=== PATIENT | female | born 1995 | race Caucasian/White ===

== ENCOUNTER 2020-12-18 07:41 | Inpatient (IN) ==
--- NOTE | 2020-11-20 10:22 | Anesthesiology Consultation ---
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 No known Covid positive contacts or Covid related symptoms. No known Covid infection in the past 90 days. Preop Covid testing scheduled 12/14/20= will await results. History Surgery Operation Date: 12/18/20 08:50 Proposed Procedures p Section in LD - J. Brock Dick MD, FACOG Height/Weight Height: 5 ft 7.5 in Weight: 86.183 kg Allergies Allergy/AdvReac Type Severity Reaction Status Date / Time No Known Drug Allergies Allergy Verified 11/20/20 09:50 Medications Home Medications Medication Instructions Recorded Confirmed Last Taken PNV cmb#95-ferrous fumarate-FA 1 tab PO PM 11/20/20 11/20/20 Unknown [] aspirin [Aspir-81] 81 mg PO PM 11/20/20 11/20/20 Unknown cholecalciferol (vitamin D3) 50 mcg PO PM 11/20/20 11/20/20 Unknown [Vitamin D3] clonazepam [Klonopin] 0.25 mg PO DAILY PRN 11/20/20 11/20/20 Unknown docosahexaenoic acid [DHA ] 200 mg PO PM 11/20/20 11/20/20 Unknown ferrous sulfate 325 mg PO PM 11/20/20 11/20/20 Unknown folic acid 5 mg PO PM 11/20/20 11/20/20 Unknown Past Medical History Medical History Anxiety Heartburn during History of anesthesia reaction during tonsillectomy > aspirated> had bilat pneumonia History of hysterosalpingogram Normal @ [facility] [place] Migraine PVC (premature ventricular contraction) PCP aware, no follow up at this time per pt Twin Urinary frequency Past Family History Family History Mother Breast cancer Grandmother (Maternal) Breast cancer Father Heart disease Denies family history of Ovarian cancer Colorectal cancer Uterine cancer Past Surgical History Surgical History H/O melanoma excision R leg H/O tooth extraction History of tonsillectomy Social History Smoking Status: Never smoker Do You Dip or Chew Tobacco: No Hx Alcohol Use: No Hx Substance Use: No substance use type: does not use Testing Laboratory Results 11/18/20= UA: Negative
[2020-12-18] MEDS ORDERED: OXYTOCIN 30 UNITS/500 ML BAG IV PRN ×2 (08:44→08:46)
[2020-12-18] MEDS ORDERED: LACTATED RINGER'S 1,000 ML IV PRN (08:44)
--- NOTE | 2020-12-18 08:44 | History & Physical Report ---
Date of Service December 18, 2020 Assessment & Plan (1) Dichorionic diamniotic twin : She is now 4 cm Pitocin will be started first baby is vertex we discussed epidural and recommended this we discussed using a scalp clip as well to help monitor the baby's once membranes were ruptured. I discussed again the higher rate of section with twin induction and also the possibility of vaginal delivery of the first and then of the second we discussed typical outcomes with twins and complications with them patient wishes to proceed with induction Admission and Anticipated Discharge Date Admission Date: December 18, 2020 History of Present Illness Primary Care Provider: 38+ weeks gestation dichorionic diamnionic twin gestation she is here for induction her has been followed carefully with twins and the fetuses are concordant baby A is in vertex position and baby B is slightly transverse to head down. Group B strep negative Covid negative her medical history includes melanoma of her leg Allergies Allergy/AdvReac Type Severity Reaction Status Date / Time No Known Drug Allergies Allergy none Verified 12/17/20 21:52 Home Medications Medication Instructions Recorded Confirmed Type PNV cmb#95-ferrous fumarate-FA 1 tab PO PM 11/20/20 12/18/20 History [] aspirin [Aspir-81] 81 mg PO PM 11/20/20 12/18/20 History cholecalciferol (vitamin D3) 50 mcg PO PM 11/20/20 12/18/20 History [Vitamin D3] docosahexaenoic acid [DHA ] 200 mg PO PM 11/20/20 12/18/20 History ferrous sulfate 325 mg PO PM 11/20/20 12/18/20 History folic acid 5 mg PO PM 11/20/20 12/18/20 History Patient History Medical History Anxiety Heartburn during History of anesthesia reaction during tonsillectomy > aspirated> had bilat pneumonia History of hysterosalpingogram Normal @ [facility] [place] 2019 Migraine PVC (premature ventricular contraction) PCP aware, no follow up at this time per pt Twin Urinary frequency Surgical History H/O melanoma excision R leg H/O tooth extraction History of tonsillectomy Family History Mother Breast cancer Grandmother (Maternal) Breast cancer Father Heart disease Denies family history of Ovarian cancer Colorectal cancer Uterine cancer Social History Smoking Status: Never smoker Second Hand Exposure: No; Do You Dip or Chew Tobacco: No; Tobacco Cessation Education Requested by Patient: No Hx Alcohol Use: No Hx Substance Use: No Preferred Language: [place] Islander Communication Ability: Effective 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 Beliefs That Will Affect Care: None marital status: marital status details: Ashutosh Lew (27) [phone] Current Living Situation: Spouse Current Living Situation Comment: lives with spouse, dog current occupational status: employed current occupation: [employer] Other Information That Helps Us Care for You: No Feels Safe at Home: Yes Safety Concerns: Feels Safe At This Time Assistive Devices: None and Glasses Results & Data ([facility]) Vital Signs (Past 12 Hours) Vital Signs Temp Pulse BP 12/18/20 07:56 96 H 133/84 12/18/20 07:53 98.1 F Coding Level of Care Code None Diagnoses Dichorionic diamniotic twin O30.049
[2020-12-18] MEDS ORDERED: PENICILLIN G POTASSIUM 3 MU in DEXTROSE 5% 100 ML IV PRN (08:51)
--- NOTE | 2020-12-18 08:52 | Obstetrical Progress Note ---
Date of Service December 18, 2020 Assessment & Plan Admission and Anticipated Discharge Date Admission Date: December 18, 2020 Subjective correction, GBS POS, will start PCN Results & Data ([facility]) Vital Signs (Past 12 Hours) Vital Signs Temp Pulse BP 12/18/20 07:56 96 H 133/84 12/18/20 07:53 98.1 F PG Care Time/CCT Total # of Minutes Spent Total Time Spent with Patient: Total time spent is greater than 50% in coordination of care (as documented) at patient's floor/unit and/or counseling patient: Coding Level of Care Code None
[2020-12-18] MEDS ORDERED: PENICILLIN G POTASSIUM 6 MU in DEXTROSE 5% 250 ML IV STA (08:54)
[2020-12-18 09:33] LABS: Hematocrit (blood only) 34.1 % (37-47); Hemoglobin 11.8 g/dL (12.0-16.0); Mean Corpuscular Hemoglobin 30.9 pg (25-34); Mean Corpuscular Hgb Conc 34.6 g/dL (32-36); Mean Corpuscular Volume 89.3 fL (80-100); Mean Platelet Volume 9.5 fL (7.4-10.4); Platelet Count 78 K/uL (130-400); RDW Coefficient of Variation 14.3 % (11.5-14.5); RDW Standard Deviation 46.7 fL (36.4-46.3); Red Blood Count 3.82 M/uL (4.2-5.4); White Blood Count 10.24 K/uL (4.8-10.8)
[2020-12-18 09:34] LABS: Platelet Estimate Decreased (Normal)
[2020-12-18 10:04] LABS: Hematocrit (blood only) 34.3 % (37-47); Hemoglobin 11.7 g/dL (12.0-16.0); Mean Corpuscular Hemoglobin 30.6 pg (25-34); Mean Corpuscular Hgb Conc 34.1 g/dL (32-36); Mean Corpuscular Volume 89.8 fL (80-100); RDW Coefficient of Variation 14.1 % (11.5-14.5); RDW Standard Deviation 46.7 fL (36.4-46.3); Red Blood Count 3.82 M/uL (4.2-5.4); White Blood Count 10.48 K/uL (4.8-10.8)
[2020-12-18 10:06] LABS: Mean Platelet Volume 9.3 fL (7.4-10.4); Platelet Count 68 K/uL (130-400)
[2020-12-18 10:21] LABS: Alanine Aminotransferase 196 U/L (12-78); Albumin Level 2.5 gm/dl (3.4-5.0); Aspartate Aminotransferase 173 U/L (15-37); BUN Creatinine Ratio 15.3 (10-20); Blood Urea Nitrogen 8 mg/dl (7-18); Calcium 8.8 mg/dl (8.5-10.1); Carbon Dioxide 23 mmol/L (21-32); Chloride 106 mmol/L (98-107); Creatinine Clr Calc Pharmacy 197.8 ml/min; Est GFR (African American) > 150.0; Est GFR (Non-African American) 132.6; Glucose 83 mg/dl (70-99); Potassium 3.6 mmol/L (3.5-5.1); Sodium 136 mmol/L (136-145)
[2020-12-18 10:24] LABS: Albumin Globulin Ratio 0.7 (0.9-2); Alkaline Phosphatase 161 U/L (45-117); Bilirubin,Total 0.9 mg/dl (0.2-1); Globulin 3.7 gm/dl (2.5-4.0); Total Protein 6.2 gm/dl (6.4-8.2)
[2020-12-18] MEDS ORDERED: SODIUM CHLORIDE 0.9% 250 ML IV PRN ×3 (10:37→11:15)
[2020-12-18 10:42] LABS: Basophils # (auto) 0.02 K/uL (0-0.2); Basophils % (auto) 0.2 %; Eosinophils # (auto) 0.06 K/uL (0-0.5); Eosinophils % (auto) 0.6 %; Immature Granulocytes # (auto) 0.09 K/uL (0.00-0.02); Immature Granulocytes % (auto) 0.9 %; Lymphocytes % (auto) 12.4 %; Monocytes # (auto) 0.98 K/uL (0.11-0.59); Monocytes % (auto) 9.4 %; Neutrophils # (auto) 8.03 K/uL (1.4-6.5); Neutrophils % (auto) 76.5 %; RBC Morphology Unremarkable
--- NOTE | 2020-12-18 11:08 | Obstetrical Progress Note ---
Date of Service Update her platelet count was low on initial draw and a repeat it was 68 patient feels well although she did have some upper abdominal pain couple days ago and noted that when she was shaving her legs that she bled for longer than typical. Her liver enzymes are also elevated AST ALT she now has a platelet count that is not safe for regional anesthetic. Discussed that she needs magnesium sulfate and reviewed with anesthesia we recommend section under general anesthetic we will start magnesium first and we have discussed with blood bank for the possible use of platelets and other blood products. This was discussed with the patient as well the plan including the reasons for including risks of and increased bleeding risks Patient does have hellp syndrome section. The patient was counseled to the nature of the procedure including alternatives such as labor. Risks were discussed including bleeding infection injury to bowel bladder ureter vessels and even baby. Deep Vein thrombosis, pulmonary embolus discussed. Breakdown of incision reviewed. Deep vein thrombosis pulmonary embolus hernia and failure of the incision to heal were discussed Patient verbalized understanding of this and was given ample time to ask questions. Discussed that the main issue is that I do not feel an reduction as #1 she cannot have a regional anesthetic and #2 is if we had to do an emergency I think this would be even more dangerous in a low platelets and situation that is a controlled in the situation is my recommendation December 18, 2020 Assessment & Plan Admission and Anticipated Discharge Date Admission Date: December 18, 2020 Results & Data ([facility]) Vital Signs (Past 12 Hours) Vital Signs Temp Pulse Resp BP 12/18/20 10:00 18 12/18/20 09:30 20 12/18/20 08:30 20 12/18/20 08:15 98.1 F 20 12/18/20 07:56 96 H 133/84 12/18/20 07:53 98.1 F PG Care Time/CCT Total # of Minutes Spent Total Time Spent with Patient: Total time spent is greater than 50% in co ordination of care (as documented) at patient's floor/unit and/or counseling patient: Coding Level of Care Code None
[2020-12-18] MEDS ORDERED: MAG SULFATE 4GM BOLUS FROM BAG IV ONE (11:15)
[2020-12-18 11:30] LABS: INR 0.9 (0.9-1.1); Partial Thromboplastin Ratio 1.1; Partial Thromboplastin Time 28.7 Seconds (21.0-31.0); Prothrombin Time 9.4 Seconds (9.0-12.0)
[2020-12-18] MEDS: MAGNESIUM SULFATE / WTR 40 GM/1,000 ML BAG IV SCH (11:36)
[2020-12-18 11:42] LABS: Protein Creatinine Ratio Urine 0.4 (0-0.2); Total Protein Urine Random 60.2 mg/dl (0-11.9)
[2020-12-18] MEDS ORDERED: SUCCINYLCHOLINE 100MG/5ML SYR IV ONE (11:42)
[2020-12-18] MEDS ORDERED: fentaNYL citrate 100 MCG/2 ML VIAL ONE (11:42)
[2020-12-18] MEDS ORDERED: ONDANSETRON INJ 2 MG/ML 2 ML VIAL ONE ×2 (11:42→12:37)
[2020-12-18] MEDS ORDERED: PROPOFOL IV EMULSION 10 MG/ML 20 ML VIAL IV ONE (11:42)
[2020-12-18] MEDS ORDERED: SUCCINYLCHOLINE CHLORIDE 20 MG/ML 10 ML VIAL IV ONE (11:43)
[2020-12-18] MEDS ORDERED: ceFAZolin 2000MG 2,000 MG/15 ML SYR IV STA (11:51)
[2020-12-18] MEDS ORDERED: miSOPROStoL 200 MCG TAB ONE (12:22)
[2020-12-18] MEDS ORDERED: OXYTOCIN 10 UNITS/ML VIAL ONE ×4 (12:36→12:54)
[2020-12-18] MEDS ORDERED: MoRPHine SULFATE 2 MG/ML CARP ONE ×2 (12:43→12:50)
[2020-12-18] MEDS ORDERED: MoRPHine SULFATE PF 1 MG/ML 10 ML AMP/VIAL ONE (12:59)
[2020-12-18] MEDS ORDERED: LIDOCAINE HCL 2% (LOCAL) INJ 50 ML VIAL ONE (13:04)
[2020-12-18 13:08] LABS: Base Excess Cord Arterial Bld 1.6 mEq/L (-9-1.8); Base Excess Cord Venous Blood 0.5 mEq/L (-7.7-1.9); CO2 Cord Arterial Blood 56 mmHg (39.1-73.5); Cord Venous Blood HCO3 27 mmol/L (18.4-26.8); Cord Venous Blood PCO2 48 mmHg (30.4-57.2); Cord Venous Blood PO2 36 mmHg (14.1-43.3); Cord Venous Blood pH 7.36 (7.20-7.44); HCO3 Cord Arterial Blood 29 mmol/L (19.7-28.5); O2 Saturation Cord Venous Bld 73.6 % (<68); PO2 Cord Arterial Blood 22 mmHg (4.1-31.7); pH Cord Arterial Blood 7.33 (7.1-7.38)
[2020-12-18 13:10] LABS: Oxygen Sat Cord Arterial Blood < 60.0 % (<60)
[2020-12-18 13:14] LABS: Base Excess Cord Arterial Bld 1.2 mEq/L (-9-1.8); CO2 Cord Arterial Blood 55 mmHg (39.1-73.5); HCO3 Cord Arterial Blood 28 mmol/L (19.7-28.5); PO2 Cord Arterial Blood 23 mmHg (4.1-31.7); pH Cord Arterial Blood 7.33 (7.1-7.38)
[2020-12-18 13:15] LABS: Oxygen Sat Cord Arterial Blood < 60.0 % (<60)
[2020-12-18] MEDS ORDERED: ONDANSETRON INJ 2 MG/ML 2 ML VIAL IV PRN ×2 (13:20→15:12)
[2020-12-18] MEDS ORDERED: ATROPINE SULFATE 0.1 MG/ML 10ML SYR IV PRN (13:20)
[2020-12-18] MEDS ORDERED: ePHEDrine sulfate 50 MG/ML AMP IV PRN (13:20)
[2020-12-18] MEDS ORDERED: PROMETHAZINE HCL 6.25 MG in SODIUM CHLORIDE 0.9% 50 ML IV PRN (13:20)
--- NOTE | 2020-12-18 13:24 | Operative Report ---
PG Post Operative Report Pre & Post Diagnosis Operation Date: 12/18/20 08:50 <No data on this case meets the specified criteria> Operation Date: 12/18/20 12:15 Pre-Op Diagnosis: Twins; HELLP Syndrome;38 Weeks Gestation Post-Op Diagnosis: Same; Delivery of a live male child at 1234; Delivery of a live female child at 1236 ( main OR 3) I identified the patient and participated in the time-out.: Yes Procedure Operation Date: 12/18/20 08:50 <No data on this case meets the specified criteria> Operation Date: 12/18/20 12:15 Actual Procedures p Section in LD(Bilateral) - Kaye Dick MD, FACOG Surgeon Kaye Dick MD, FACOG Health Analyst Dr. Ryan Estimated Blood Loss 700 Findings Consistent with Post-Op Diagnosis Specimens cord gases and blodd, placenta Description of Procedure Patient received preoperative antibiotics Ancef 2 g she had received IV platelets as well as her count was low by anesthesia she received a general anesthetic and once this was completed Pfannenstiel incision was made with scalpel cutting down through subtenons fat through the fascia in the midline curved Mayos were used to cut the fascia laterally and then fascia was dissected superiorly and inferiorly away from the rectus muscles rectus muscles were split peritoneal cavity was entered bluntly bladder retractor was placed Metzenbaums used to dissect the bladder flap away low segment transverse incision was been made on the uterus with scalpel entry was done bluntly with the acid recovery operator's finger and then hysterotomy incision opened to allow delivery of the first baby First baby was in vertex position after flexion of the head and then pressure from the physiotherapy assistant baby was delivered without difficulty clear fluid no nuchal cord cord clamped and cut note curved clamps were used on baby A Cord gases obtained cord blood obtained Baby B was then palpated in vertex position descended into the pelvis membranes were ruptured and was also delivered in vertex position by flexion of the head and physiotherapy assistant from pressure from the physiotherapy assistant Live vigorous infant cord clamped and cut cord gases obtained Placenta was removed 2 separate placentas were removed. We exteriorized the uterus IV Pitocin was started we ensured all placenta was removed from the uter us was a moist lap. Uterus was closed in usual fashion a running 0 Monocryl locked and a second 0 Monocryl nonlocked at this stage after patient uterus back in the peritoneal cavity and after generous irrigation and suction hemostasis was excellent we did apply FloSeal to the incision and bladder flap area Rectus muscles were carefully inspected there were no bleeders fascia was then closed with 0 Vicryl Subtenons fat was irrigated and injected with local anesthetic fat was then closed with 3-0 Vicryl skin closed with 4 oh subicular Monocryl sponge and instrument counts correct Urine was clear at the end of the procedure and there was only moderate bleeding at the end of the procedure consistent with normal delivery of a I attest to the content of the Intraoperative Record and any orders documented therein. Any exceptions are noted below. Procedure Pre-op/Post-op diagnoses: Pre-Op/Post-Op Diagnoses Operation Date: 12/18/20 08:50 <No data on this case meets the specified criteria> Operation Date: 12/18/20 12:15 Pre-Op Diagnosis: Twins; HELLP Syndrome;38 Weeks Gestation Post-Op Diagnosis: Same; Delivery of a live male child at 1234; Delivery of a live female child at 1236 ( main OR 3) Procedure: Procedures Operation Date: 12/18/20 08:50 <No data on this case meets the specified criteria> Operation Date: 12/18/20 12:15 Actual Procedures Side Surgeon p Section in LD Bilateral Kaye Dick MD, FACOG Anesthesia type: General Narrative: Note this is a twin delivery
[2020-12-18 13:41] LABS: Base Excess Cord Venous Blood 0.1 mEq/L (-7.7-1.9); Cord Venous Blood HCO3 26 mmol/L (18.4-26.8); Cord Venous Blood PCO2 48 mmHg (30.4-57.2); Cord Venous Blood PO2 36 mmHg (14.1-43.3); Cord Venous Blood pH 7.35 (7.20-7.44); O2 Saturation Cord Venous Bld 75.8 % (<68)
[2020-12-18] MEDS: fentaNYL citrate 100 MCG/2 ML VIAL IV PRN ×3 (13:45→14:50)
[2020-12-18] MEDS ORDERED: NALOXONE HCL 0.4 MG/1 ML VIAL/CARP IV PRN (13:50)
[2020-12-18] MEDS ORDERED: HYDROmorphone PCA 30 MG/30 ML IV PRN (13:50)
[2020-12-18] MEDS ORDERED: SODIUM CHLORIDE 0.9% 1000ML 1,000 ML IV SCH (14:00)
[2020-12-18] MEDS: ACETAMINOPHEN 1000 MG/100 ML IV IV SCH ×2 (14:09→22:00)
[2020-12-18] MEDS ORDERED: MAGNESIUM HYDROXIDE SUSP 30 ML UDC PO PRN (15:12)
[2020-12-18] MEDS ORDERED: HYDROCORTISONE ACETATE 25 MG SUPP PR PRN (15:12)
[2020-12-18] MEDS ORDERED: SENNA 8.6 MG TAB PO PRN (15:12)
[2020-12-18] MEDS ORDERED: oxyCODONE/ACETAMINOPHEN 5mg/325mg TAB PO PRN (15:12)
[2020-12-18] MEDS ORDERED: diphenhydrAMINE Capsule 25 MG CAP PO PRN (15:12)
[2020-12-18] MEDS ORDERED: BENZOCAINE 20% AER SPR 82.5 GM CAN EXT PRN (15:12)
[2020-12-18] MEDS ORDERED: SUPERCREAM 0.870% 15 GM JAR EXT PRN (15:12)
[2020-12-18] MEDS ORDERED: diphenhydrAMINE 50 MG/ML VIAL IV PRN (15:12)
[2020-12-18] MEDS ORDERED: PROMETHAZINE HCL 25 MG in SODIUM CHLORIDE 0.9% 50 ML IV PRN (15:12)
[2020-12-18] MEDS: OXYTOCIN 20 UNITS in LACTATED RINGER'S 1,000 ML IV SCH (16:00)
[2020-12-18 16:24] LABS: Hematocrit (blood only) 25.5 % (37-47); Hemoglobin 8.8 g/dL (12.0-16.0); Mean Corpuscular Hemoglobin 31.2 pg (25-34); Mean Corpuscular Hgb Conc 34.5 g/dL (32-36); Mean Corpuscular Volume 90.4 fL (80-100); Mean Platelet Volume 9.6 fL (7.4-10.4); Platelet Count 91 K/uL (130-400); RDW Coefficient of Variation 14.3 % (11.5-14.5); RDW Standard Deviation 47.4 fL (36.4-46.3); Red Blood Count 2.82 M/uL (4.2-5.4); White Blood Count 19.33 K/uL (4.8-10.8)
[2020-12-18 16:32] LABS: Alanine Aminotransferase 141 U/L (12-78); Albumin Level 1.9 gm/dl (3.4-5.0); Aspartate Aminotransferase 127 U/L (15-37); BUN Creatinine Ratio 17.1 (10-20); Basophils # (auto) 0.02 K/uL (0-0.2); Basophils % (auto) 0.1 %; Blood Urea Nitrogen 7 mg/dl (7-18); Calcium 7.8 mg/dl (8.5-10.1); Carbon Dioxide 21 mmol/L (21-32); Chloride 107 mmol/L (98-107); Creatinine Clr Calc Pharmacy 235.5 ml/min; Eosinophils # (auto) 0.01 K/uL (0-0.5); Eosinophils % (auto) 0.1 %; Est GFR (African American) > 150.0; Est GFR (Non-African American) 140.5; Glucose 92 mg/dl (70-99); Immature Granulocytes # (auto) 0.13 K/uL (0.00-0.02); Immature Granulocytes % (auto) 0.7 %; Lymphocytes % (auto) 7.2 %; Monocytes # (auto) 1.29 K/uL (0.11-0.59); Monocytes % (auto) 6.7 %; Neutrophils # (auto) 16.48 K/uL (1.4-6.5); Neutrophils % (auto) 85.2 %; Sodium 137 mmol/L (136-145)
[2020-12-18 16:36] LABS: Albumin Globulin Ratio 0.7 (0.9-2); Alkaline Phosphatase 121 U/L (45-117); Bilirubin,Total 1.3 mg/dl (0.2-1); Globulin 2.9 gm/dl (2.5-4.0); Total Protein 4.8 gm/dl (6.4-8.2)
--- NOTE | 2020-12-18 17:04 | Anesthesiology Progress Note ---
Date of Service December 18, 2020 Anesthesia Post Procedure Vital Signs Vital Signs: Temp Pulse Resp BP Pulse Ox 12/18/20 17:03 76 97 12/18/20 17:00 75 99/54 L 12/18/20 16:58 72 95 12/18/20 16:53 77 95 12/18/20 16:48 71 94 12/18/20 16:43 76 95 12/18/20 16:38 73 94 12/18/20 16:33 73 96 12/18/20 16:28 84 95 12/18/20 16:23 93 H 96 12/18/20 16:18 89 96 12/18/20 16:13 85 95 12/18/20 16:08 85 96 12/18/20 16:03 83 96 12/18/20 15:58 79 97 12/18/20 15:53 82 12/18/20 15:49 84 106/64 12/18/20 15:48 86 97 12/18/20 15:43 83 96 12/18/20 15:39 36.7 C 83 14 108/57 L 12/18/20 15:38 79 97 12/18/20 15:33 72 98 12/18/20 15:29 84 111/61 12/18/20 15:28 77 97 12/18/20 15:23 72 95 12/18/20 15:19 75 111/66 12/18/20 15:18 75 96 12/18/20 15:13 74 96 12/18/20 15:09 74 14 123/60 12/18/20 15:08 70 97 12/18/20 15:03 69 94 12/18/20 14:59 73 124/57 L 12/18/20 14:58 71 93 12/18/20 14:54 73 92 12/18/20 14:53 70 96 12/18/20 14:49 73 120/63 12/18/20 14:48 75 97 12/18/20 14:43 73 95 12/18/20 14:39 36.7 C 75 12 121/63 12/18/20 14:38 78 97 12/18/20 14:33 73 96 12/18/20 14:31 75 94 12/18/20 14:29 75 14 128/63 12/18/20 14:28 76 95 12/18/20 14:23 82 96 12/18/20 14:21 81 94 12/18/20 14:19 80 16 128/63 12/18/20 14:18 80 97 12/18/20 14:13 75 98 12/18/20 14:09 81 14 127/66 12/18/20 14:08 75 97 12/18/20 14:03 77 98 12/18/20 13:59 74 14 125/65 12/18/20 13:58 77 99 12/18/20 13:53 81 100 12/18/20 13:49 36.5 C 80 16 117/61 12/18/20 13:48 76 99 12/18/20 13:43 77 100 12/18/20 13:39 82 133/63 12/18/20 13:38 76 100 12/18/20 12:08 108 H 97 12/18/20 12:03 102 H 96 12/18/20 12:02 100 H 135/80 12/18/20 12:00 36.5 C 20 12/18/20 11:58 104 H 97 12/18/20 11:53 102 H 97 12/18/20 11:48 96 H 97 12/18/20 11:47 97 H 138/81 12/18/20 11:46 36.5 C 97 H 18 138/81 97 12/18/20 11:14 88 138/86 12/18/20 11:00 20 12/18/20 10:00 18 12/18/20 09:30 20 12/18/20 08:30 20 12/18/20 08:15 36.7 C 20 12/18/20 07:56 96 H 133/84 12/18/20 07:53 36.7 C Pain Intensity Bilateral Lower Abdomen: Pain Intensity: 4 Transfer of Care Handoff Completed per policy Notes Mental Status: alert / awake / arousable Patient Amnestic to Procedure: Yes Nausea / Vomiting: adequately controlled Pain: adequately controlled Airway Patency, RR, SpO2: stable & adequate BP & HR: stable & adequate Hydration State: stable & adequate Anesthetic Complications: no major complications apparent
[2020-12-18] MEDS ORDERED: Nursing to Pharmacy Communication SCH (17:15)
[2020-12-18] MEDS: SIMETHICONE 80 MG CHEW PO SCH ×2 (18:09→21:30)
[2020-12-18] MEDS ORDERED: LACTATED RINGER'S 1,000 ML IV ONE (21:19)
--- NOTE | 2020-12-18 21:26 | Obstetrical Progress Note ---
Date of Service Patient doing well at this stage I did review earlier labs with improvement in both platelets and her AST ALT will continue the magnesium sulfate at this time patient's urine output is just at the minimum I will give a IV bolus of fluid because she is not hypertensive I think this is reasonable usually I would fluid restrict at this stage we will assess labs in the morning December 18, 2020 Assessment & Plan Admission and Anticipated Discharge Date Admission Date: December 18, 2020 Results & Data ([facility]) Vital Signs (Past 12 Hours) Vital Signs Temp Pulse Resp BP Pulse Ox 12/18/20 21:23 84 97 12/18/20 21:20 76 92 12/18/20 21:18 79 93 12/18/20 21:14 77 92 12/18/20 21:13 79 92 12/18/20 21:08 80 97 12/18/20 21:04 81 91 12/18/20 21:03 78 93 12/18/20 21:00 75 100/56 L 12/18/20 20:58 80 93 12/18/20 20:57 78 92 12/18/20 20:53 78 94 12/18/20 20:52 79 92 12/18/20 20:48 75 93 12/18/20 20:47 82 92 12/18/20 20:43 78 94 12/18/20 20:38 81 95 12/18/20 20:33 79 95 12/18/20 20:28 81 96 12/18/20 20:23 83 96 12/18/20 20:18 79 96 12/18/20 20:13 88 96 12/18/20 20:08 90 95 12/18/20 20:03 79 97 12/18/20 20:00 81 110/57 L 12/18/20 19:58 88 95 12/18/20 19:53 85 95 12/18/20 19:48 86 96 12/18/20 19:46 90 111/56 L 12/18/20 19:43 89 95 12/18/20 19:38 87 96 12/18/20 19:33 98 H 95 12/18/20 19:28 93 H 96 12/18/20 19:23 90 96 12/18/20 19:18 89 95 12/18/20 19:15 97.9 F 18 12/18/20 19:13 98 H 95 12/18/20 19:08 92 H 95 12/18/20 19:03 87 95 12/18/20 19:00 90 92 12/18/20 18:58 86 95 12/18/20 18:53 89 94 12/18/20 18:48 90 96 12/18/20 18:43 79 94 12/18/20 18:38 79 97 12/18/20 18:33 78 97 12/18/20 18:28 77 96 12/18/20 18:23 82 97 12/18/20 18:18 80 98 12/18/20 18:13 78 97 12/18/20 18:08 79 97 12/18/20 18:03 77 97 12/18/20 18:00 78 16 110/62 12/18/20 17:58 80 96 12/18/20 17:53 75 96 12/18/20 17:48 82 96 12/18/20 17:43 91 H 97 12/18/20 17:40 16 12/18/20 17:38 79 96 12/18/20 17:33 79 97 12/18/20 17:28 88 96 12/18/20 17:23 79 96 12/18/20 17:18 77 95 12/18/20 17:13 76 96 12/18/20 17:08 72 95 12/18/20 17:03 76 97 12/18/20 17:00 75 14 99/54 L 12/18/20 16:58 72 95 12/18/20 16:53 77 95 12/18/20 16:48 71 94 12/18/20 16:43 76 95 12/18/20 16:38 73 94 12/18/20 16:33 73 96 12/18/20 16:28 84 95 12/18/20 16:23 93 H 96 12/18/20 16:18 89 96 12/18/20 16:13 85 95 12/18/20 16:08 85 96 12/18/20 16:03 83 96 12/18/20 15:58 79 97 12/18/20 15:53 82 12/18/20 15:49 84 106/64 12/18/20 15:48 86 97 12/18/20 15:43 83 96 12/18/20 15:39 98.1 F 83 14 108/57 L 12/18/20 15:38 79 97 12/18/20 15:33 72 98 12/18/20 15:29 84 111/61 12/18/20 15:28 77 97 12/18/20 15:23 72 95 12/18/20 15:19 75 111/66 12/18/20 15:18 75 96 12/18/20 15:13 74 96 12/18/20 15:09 74 14 123/60 12/18/20 15:08 70 97 12/18/20 15:03 69 94 12/18/20 14:59 73 124/57 L 12/18/20 14:58 71 93 12/18/20 14:54 73 92 12/18/20 14:53 70 96 12/18/20 14:49 73 120/63 12/18/20 14:48 75 97 12/18/20 14:43 73 95 12/18/20 14:39 98.1 F 75 12 121/63 12/18/20 14:38 78 97 12/18/20 14:33 73 96 12/18/20 14:31 75 94 12/18/20 14:29 75 14 128/63 12/18/20 14:28 76 95 12/18/20 14:23 82 96 12/18/20 14:21 81 94 12/18/20 14:19 80 16 128/63 12/18/20 14:18 80 97 12/18/20 14:13 75 98 12/18/20 14:09 81 14 127/66 12/18/20 14:08 75 97 12/18/20 14:03 77 98 12/18/20 14:00 14 12/18/20 13:59 74 14 125/65 12/18/20 13:58 77 99 12/18/20 13:53 81 100 12/18/20 13:49 97.7 F 80 16 117/61 12/18/20 13:48 76 99 12/18/20 13:43 77 100 12/18/20 13:39 82 133/63 12/18/20 13:38 76 100 12/18/20 12:08 108 H 97 12/18/20 12:03 102 H 96 12/18/20 12:02 100 H 135/80 12/18/20 12:00 97.7 F 20 12/18/20 11:58 104 H 97 04/09/21 11:53 102 H 97 12/18/20 11:48 96 H 97 12/18/20 11:47 97 H 138/81 12/18/20 11:46 97.7 F 97 H 18 138/81 97 12/18/20 11:14 88 138/86 12/18/20 11:00 20 12/18/20 10:00 18 12/18/20 09:30 20 PG Care Time/CCT Total # of Minutes Spent Total Time Spent with Patient: Total time spent is greater than 50% in coordination of care (as documented) at patient's floor/unit and/or counseling patient: Coding Level of Care Code None
[2020-12-18] MEDS: DOCUSATE SODIUM 100 MG CAP PO SCH (21:30)
[2020-12-19] MEDS ORDERED: ACETAMINOPHEN 1000 MG/100 ML IV IV PRN (04:35)
[2020-12-19] MEDS: MAGNESIUM SULFATE / WTR 40 GM/1,000 ML BAG IV SCH (05:36)
[2020-12-19] MEDS: OXYTOCIN 20 UNITS in LACTATED RINGER'S 1,000 ML IV SCH (06:18)
--- NOTE | 2020-12-19 06:21 | Obstetrical Progress Note ---
Date of Service <Michael Infante MD - Last Filed: 12/19/20 07:10> December 19, 2020 Assessment & Plan <Michael Infante MD - Last Filed: 12/19/20 07:10> (1) Dichorionic diamniotic twin : Alma is a 25 y/o female who is POD #1 following PLTCS in setting of atypical HELLP syndrome at 38 WGA, with subsequent delivery of two healthy di/di twins. s/p PLTCS - Overall, doing well this AM -- VS and labs reviewed, stable - Pain well controlled with FIELD BROOMER - Routine post-operative care -- trial Hanna removal today, OOB, ambulation, diet progression as tolerated - CBC qAM - After discharge will have [address] Dick HELLP Syndrome, Atypical -- s/p 1U FFP pre-operatively - Appreciated on labs yesterday, platelets to ~60s, mild transaminitis from 140- 190s - Continue Mg throughout today - BPs stable - Continue to monitor CMP Acute Blood Loss Anemia -- currently asymptomatic - Hgb ~11 on arrival --> 7.1 this AM, Hct 30 - While bleeding seems to have stabilized externally, concerned that this may drop further in immediate post-operative setting - Discussed options, watchful waiting vs. transfusion -- transfusion being recommended - Will proceed with 2U pRBC, type/cross already completed - H&H at 1400 (2) HELLP syndrome (HELLP), third trimester: Subjective <Michael Infante MD - Last Filed: 12/19/20 07:10> Alma is a 25 y/o female who is POD #1 following PLTCS in setting of atypical HELLP syndrome at 38 WGA. Her and delivery were also notable for di/di twins. She reports feeling well overall this morning. Endorses moderate pain this AM, well managed on FIELD BROOMER. Voiding via Hanna, which is draining yellow urine. Tolerating fluids OK. Very mild bleeding which has improved over the night. Breast feeding. Does note +mild abdominal pain, RUQ area. No lightheadedness, dizziness - ho wever, has not really gotten up to walk around. Mild fatigue. Review of Systems Denies fever, chills, sweats Denies shortness of breath, difficulty breathing, chest pain, palpitations, chest pressure. Denies breast pain. Denies dysuria. Denies headache or changes in vision. Physical Exam <Michael Infante MD - Last Filed: 12/19/20 07:10> General: Alert, oriented. Pale appearing. No acute distress. Cardiac: Regular rate and rhythm, no murmurs/rubs/gallops. Respiratory: Clear to auscultation bilaterally a/p, no wheezes/rales/rhonchi. No increased work of breathing. Symmetrical chest rise. No respiratory distress. Abdomen: Soft and nondistended. Mild TTP in the RUQ. Uterus: Uterine fundus firm, palpable 1-2 cm below umbilicus. Surgical scar clean and healing well. Lower Extremities: Mild lower extremity edema or swelling. No deep calf pain. Obdulia's negative bilaterally. Results & Data ([facility]) <Michael Infante MD - Last Filed: 12/19/20 07:10> Vital Signs (Past 12 Hours) Vital Signs Temp Pulse Resp BP Pulse Ox 12/19/20 06:13 96 H 94 12/19/20 06:08 99 H 92 12/19/20 06:03 88 93 12/19/20 06:00 99 H 106/53 L 12/19/20 05:58 98 H 93 12/19/20 05:53 86 93 12/19/20 05:48 89 94 12/19/20 05:43 91 H 94 12/19/20 05:38 92 H 93 12/19/20 05:33 95 H 93 12/19/20 05:28 88 94 12/19/20 05:23 92 H 94 12/19/20 05:18 81 92 12/19/20 05:13 79 91 12/19/20 05:08 77 91 12/19/20 05:03 89 94 12/19/20 05:00 73 111/57 L 12/19/20 04:58 78 92 12/19/20 04:53 77 92 12/19/20 04:48 78 92 12/19/20 04:43 77 92 12/19/20 04:38 77 93 12/19/20 04:33 76 94 12/19/20 04:28 80 94 12/19/20 04:23 79 92 12/19/20 04:18 78 93 12/19/20 04:13 77 92 12/19/20 04:08 74 93 12/19/20 04:03 80 92 12/19/20 04:00 77 108/55 L 12/19/20 03:58 76 93 12/19/20 03:53 77 92 12/19/20 03:48 90 95 12/19/20 03:45 36.8 C 16 12/19/20 03:43 75 93 12/19/20 03:38 78 92 12/19/20 03:33 80 92 12/19/20 03:28 79 92 12/19/20 03:23 79 93 12/19/20 03:18 82 91 12/19/20 03:13 82 93 12/19/20 03:08 80 92 12/19/20 03:03 79 92 12/19/20 03:00 77 112/58 L 12/19/20 02:58 78 93 12/19/20 02:53 75 94 12/19/20 02:48 83 95 12/19/20 02:43 84 95 12/19/20 02:38 89 94 12/19/20 02:33 93 H 96 12/19/20 02:28 82 94 12/19/20 02:23 97 H 95 12/19/20 02:18 92 H 96 12/19/20 02:13 86 93 12/19/20 02:10 16 12/19/20 02:08 95 H 94 12/19/20 02:03 94 H 95 12/19/20 02:00 89 130/60 12/19/20 01:58 95 H 93 12/19/20 01:53 96 H 95 12/19/20 01:48 78 93 12/19/20 01:43 77 93 12/19/20 01:38 82 92 12/19/20 01:33 78 92 12/19/20 01:28 78 93 12/19/20 01:23 78 92 12/19/20 01:18 79 92 12/19/20 01:13 79 92 12/19/20 01:08 78 93 12/19/20 01:03 80 92 12/19/20 01:00 80 110/61 12/19/20 00:58 77 94 12/19/20 00:54 83 92 12/19/20 00:53 83 92 12/19/20 00:49 81 91 12/19/20 00:48 77 95 12/19/20 00:43 79 91 12/19/20 00:41 79 91 12/19/20 00:38 81 93 12/19/20 00:36 83 88 L 12/19/20 00:33 75 93 12/19/20 00:30 88 92 12/19/20 00:28 78 92 12/19/20 00:25 79 92 12/19/20 00:23 78 94 12/19/20 00:18 88 95 12/19/20 00:13 93 H 95 12/19/20 00:08 97 H 95 12/19/20 00:06 82 123/66 12/19/20 00:03 95 H 95 12/19/20 00:00 36.8 C 18 12/18/20 23:58 98 H 94 12/18/20 23:53 98 H 94 12/18/20 23:48 91 H 94 12/18/20 23:43 93 H 93 12/18/20 23:38 96 H 94 12/18/20 23:33 92 H 94 12/18/20 23:32 101 H 92 12/18/20 23:28 87 94 12/18/20 23:23 89 95 12/18/20 23:18 86 94 12/18/20 23:13 85 95 12/18/20 23:08 87 93 12/18/20 23:03 84 93 12/18/20 23:00 84 108/55 L 12/18/20 22:58 90 93 12/18/20 22:53 86 95 12/18/20 22:48 91 H 96 12/18/20 22:43 88 95 12/18/20 22:38 91 H 95 12/18/20 22:33 94 H 94 12/18/20 22:28 92 H 95 12/18/20 22:23 74 94 12/18/20 22:20 81 92 12/18/20 22:18 81 93 12/18/20 22:13 78 93 12/18/20 22:08 75 94 12/18/20 22:03 83 96 12/18/20 22:00 81 108/56 L 12/18/20 21:59 78 92 12/18/20 21:58 79 95 12/18/20 21:53 79 91 12/18/20 21:48 75 93 12/18/20 21:47 80 92 12/18/20 21:43 76 96 12/18/20 21:38 81 95 12/18/20 21:33 78 96 12/18/20 21:28 84 95 12/18/20 21:23 84 97 12/18/20 21:20 76 92 12/18/20 21:18 79 93 12/18/20 21:14 77 92 12/18/20 21:13 79 92 12/18/20 21:08 80 97 12/18/20 21:04 81 91 12/18/20 21:03 78 93 12/18/20 21:00 75 100/56 L 12/18/20 20:58 80 93 12/18/20 20:57 78 92 12/18/20 20:53 78 94 12/18/20 20:52 79 92 12/18/20 20:48 75 93 12/18/20 20:47 82 92 12/18/20 20:43 78 94 12/18/20 20:38 81 95 12/18/20 20:33 79 95 12/18/20 20:28 81 96 12/18/20 20:23 83 96 12/18/20 20:18 79 96 12/18/20 20:13 88 96 12/18/20 20:08 90 95 12/18/20 20:03 79 97 12/18/20 20:00 81 110/57 L 12/18/20 19:58 88 95 12/18/20 19:53 85 95 12/18/20 19:48 86 96 12/18/20 19:46 90 111/56 L 12/18/20 19:43 89 95 12/18/20 19:38 87 96 12/18/20 19:33 98 H 95 12/18/20 19:28 93 H 96 12/18/20 19:23 90 96 12/18/20 19:18 89 95 12/18/20 19:15 36.6 C 18 12/18/20 19:13 98 H 95 12/18/20 19:08 92 H 95 12/18/20 19:03 87 95 12/18/20 19:00 90 92 12/18/20 18:58 86 95 12/18/20 18:53 89 94 12/18/20 18:48 90 96 12/18/20 18:43 79 94 12/18/20 18:38 79 97 12/18/20 18:33 78 97 12/18/20 18:28 77 96 12/18/20 18:23 82 97 12/18/20 18:18 80 98 <Kaye Dick MD, FACOG - Last Filed: 12/19/20 07:18> Co-Signing Physician Notes Resident Physician Supervision Note: I interviewed and examined the patient. Discussed with [Naresh] and agree with findings and plan as documented in the note. Any exceptions or clarifications are listed here: [None] Documented By: Kaye Dick MD, FACOG Resident Activity Tracking <Michael Infante MD - Last Filed: 12/19/20 07:10> Resident Involvement: Resident Care Provided Care Provided: Adult Hospital Medicine and OB Delivery
[2020-12-19 06:34] LABS: Hemoglobin 7.1 g/dL (12.0-16.0); Mean Corpuscular Hemoglobin 31.7 pg (25-34); Mean Corpuscular Hgb Conc 35.5 g/dL (32-36); Mean Corpuscular Volume 89.3 fL (80-100); Platelet Count 91 K/uL (130-400); RDW Coefficient of Variation 14.5 % (11.5-14.5); RDW Standard Deviation 46.7 fL (36.4-46.3); Red Blood Count 2.24 M/uL (4.2-5.4); White Blood Count 12.61 K/uL (4.8-10.8)
[2020-12-19 06:49] LABS: Basophils # (auto) 0.02 K/uL (0-0.2); Basophils % (auto) 0.2 %; Eosinophils # (auto) 0.07 K/uL (0-0.5); Eosinophils % (auto) 0.6 %; Immature Granulocytes # (auto) 0.06 K/uL (0.00-0.02); Immature Granulocytes % (auto) 0.5 %; Lymphocytes # (auto) 2.29 K/uL (1.2-3.4); Lymphocytes % (auto) 18.2 %; Monocytes # (auto) 1.04 K/uL (0.11-0.59); Monocytes % (auto) 8.2 %; Neutrophils # (auto) 9.13 K/uL (1.4-6.5); Neutrophils % (auto) 72.3 %; RBC Morphology Unremarkable
[2020-12-19] MEDS ORDERED: SODIUM CHLORIDE 0.9% 250 ML IV PRN (07:01)
[2020-12-19 07:02] LABS: Albumin Level 1.7 gm/dl (3.4-5.0); Bilirubin Direct 0.1 mg/dl (0-0.2); Bilirubin,Total 0.4 mg/dl (0.2-1); Magnesium Therapeutic L&D Only 5.9 mg/dL (4.0-8.0); Total Protein 4.6 gm/dl (6.4-8.2)
--- NOTE | 2020-12-19 07:20 | Obstetrical Progress Note ---
Date of Service December 19, 2020 Assessment & Plan (1) HELLP syndrome (HELLP), third trimester: Reviewed the labs with the patient this morning and how she is doing her hemoglobin is 7.1 I do think there is a partial delusional effect here with her creatinine is now 0.42. Liver enzymes are improved and her platelet count is 91. I am concerned with a hemoglobin of 7.1 but we do not have much of a buffer if she drops further considering her low platelet count to begin with I have suggested blood transfusion of 2 units I did give the option of ambulating for a while but both the patient and her and myself agreed with blood transfusion would be likely the best and she agrees to this risks and benefits discussed consent signed Results & Data ([facility]) Vital Signs (Past 12 Hours) Vital Signs Temp Pulse Resp BP Pulse Ox 12/19/20 07:13 79 95 12/19/20 07:08 88 94 12/19/20 07:03 87 94 12/19/20 07:00 88 111/64 12/19/20 06:58 90 95 12/19/20 06:53 87 95 12/19/20 06:48 91 H 94 12/19/20 06:43 90 93 12/19/20 06:38 96 H 94 12/19/20 06:33 87 94 12/19/20 06:28 89 93 12/19/20 06:23 91 H 94 12/19/20 06:18 93 H 94 12/19/20 06:13 96 H 94 12/19/20 06:08 99 H 92 12/19/20 06:03 88 93 12/19/20 06:00 99 H 16 106/53 L 12/19/20 05:58 98 H 93 12/19/20 05:53 86 93 12/19/20 05:48 89 94 12/19/20 05:43 91 H 94 12/19/20 05:38 92 H 93 12/19/20 05:33 95 H 93 12/19/20 05:28 88 94 12/19/20 05:23 92 H 94 12/19/20 05:18 81 92 12/19/20 05:13 79 91 12/19/20 05:08 77 91 12/19/20 05:03 89 94 12/19/20 05:00 73 111/57 L 12/19/20 04:58 78 92 12/19/20 04:53 77 92 12/19/20 04:48 78 92 12/19/20 04:43 77 92 12/19/20 04:38 77 93 12/19/20 04:33 76 94 12/19/20 04:28 80 94 12/19/20 04:23 79 92 12/19/20 04:18 78 93 12/19/20 04:13 77 92 12/19/20 04:08 74 93 12/19/20 04:03 80 92 12/19/20 04:00 77 108/55 L 12/19/20 03:58 76 93 12/19/20 03:53 77 92 12/19/20 03:48 90 95 12/19/20 03:45 98.2 F 16 12/19/20 03:43 75 93 12/19/20 03:38 78 92 12/19/20 03:33 80 92 12/19/20 03:28 79 92 12/19/20 03:23 79 93 12/19/20 03:18 82 91 12/19/20 03:13 82 93 12/19/20 03:08 80 92 12/19/20 03:03 79 92 12/19/20 03:00 77 112/58 L 12/19/20 02:58 78 93 12/19/20 02:53 75 94 12/19/20 02:48 83 95 12/19/20 02:43 84 95 12/19/20 02:38 89 94 12/19/20 02:33 93 H 96 12/19/20 02:28 82 94 12/19/20 02:23 97 H 95 12/19/20 02:18 92 H 96 12/19/20 02:13 86 93 12/19/20 02:10 16 12/19/20 02:08 95 H 94 12/19/20 02:03 94 H 95 12/19/20 02:00 89 130/60 12/19/20 01:58 95 H 93 12/19/20 01:53 96 H 95 12/19/20 01:48 78 93 12/19/20 01:43 77 93 12/19/20 01:38 82 92 12/19/20 01:33 78 92 12/19/20 01:28 78 93 12/19/20 01:23 78 92 12/19/20 01:18 79 92 12/19/20 01:13 79 92 12/19/20 01:08 78 93 12/19/20 01:03 80 92 12/19/20 01:00 80 110/61 12/19/20 00:58 77 94 12/19/20 00:54 83 92 12/19/20 00:53 83 92 12/19/20 00:49 81 91 12/19/20 00:48 77 95 12/19/20 00:43 79 91 12/19/20 00:41 79 91 12/19/20 00:38 81 93 12/19/20 00:36 83 88 L 12/19/20 00:33 75 93 12/19/20 00:30 88 92 12/19/20 00:28 78 92 12/19/20 00:25 79 92 12/19/20 00:23 78 94 12/19/20 00:18 88 95 12/19/20 00:13 93 H 95 12/19/20 00:08 97 H 95 12/19/20 00:06 82 123/66 12/19/20 00:03 95 H 95 12/19/20 00:00 98.2 F 18 12/18/20 23:58 98 H 94 12/18/20 23:53 98 H 94 12/18/20 23:48 91 H 94 12/18/20 23:43 93 H 93 12/18/20 23:38 96 H 94 12/18/20 23:33 92 H 94 12/18/20 23:32 101 H 92 12/18/20 23:28 87 94 12/18/20 23:23 89 95 12/18/20 23:18 86 94 12/18/20 23:13 85 95 12/18/20 23:08 87 93 12/18/20 23:03 84 93 12/18/20 23:00 84 108/55 L 12/18/20 22:58 90 93 12/18/20 22:53 86 95 12/18/20 22:48 91 H 96 12/18/20 22:43 88 95 12/18/20 22:38 91 H 95 12/18/20 22:33 94 H 94 12/18/20 22:28 92 H 95 12/18/20 22:23 74 94 12/18/20 22:20 81 92 12/18/20 22:18 81 93 12/18/20 22:13 78 93 12/18/20 22:08 75 94 12/18/20 22:03 83 96 12/18/20 22:00 81 108/56 L 12/18/20 21:59 78 92 12/18/20 21:58 79 95 12/18/20 21:53 79 91 12/18/20 21:48 75 93 12/18/20 21:47 80 92 12/18/20 21:43 76 96 12/18/20 21:38 81 95 12/18/20 21:33 78 96 12/18/20 21:28 84 95 12/18/20 21:23 84 97 12/18/20 21:20 76 92 12/18/20 21:18 79 93 12/18/20 21:14 77 92 12/18/20 21:13 79 92 12/18/20 21:08 80 97 12/18/20 21:04 81 91 12/18/20 21:03 78 93 12/18/20 21:00 75 100/56 L 12/18/20 20:58 80 93 12/18/20 20:57 78 92 12/18/20 20:53 78 94 12/18/20 20:52 79 92 12/18/20 20:48 75 93 12/18/20 20:47 82 92 12/18/20 20:43 78 94 12/18/20 20:38 81 95 12/18/20 20:33 79 95 12/18/20 20:28 81 96 12/18/20 20:23 83 96 12/18/20 20:18 79 96 12/18/20 20:13 88 96 12/18/20 20:08 90 95 12/18/20 20:03 79 97 12/18/20 20:00 81 110/57 L 12/18/20 19:58 88 95 12/18/20 19:53 85 95 12/18/20 19:48 86 96 12/18/20 19:46 90 111/56 L 12/18/20 19:43 89 95 12/18/20 19:38 87 96 12/18/20 19:33 98 H 95 12/18/20 19:28 93 H 96 12/18/20 19:23 90 96
[2020-12-19] MEDS ORDERED: MoRPHine SULFATE 2 MG/ML CARP IV PRN (11:02)
[2020-12-19] MEDS: SIMETHICONE 80 MG CHEW PO SCH ×4 (12:23→20:04)
[2020-12-19] MEDS: DOCUSATE SODIUM 100 MG CAP PO SCH ×2 (12:26→20:04)
[2020-12-19] MEDS: FERROUS SULFATE 325 MG TAB PO SCH (12:26)
[2020-12-19] MEDS: PRENATAL VITAMIN 1 TAB PO SCH (12:26)
--- NOTE | 2020-12-19 12:52 | Obstetrical Progress Note ---
Date of Service December 19, 2020 Assessment & Plan (1) HELLP syndrome (HELLP), third trimester: (2) Twin : (3) care following delivery: doing well, approaching 24hr on magnesium. getting followup labs now. will plan d/c magnesium at 24hr. given now can take oral meds, will plan po pain mgmt. will order appropriate options. try to get to routine pp care this afternoon. pt agreeable. asks for abdominal binder. will order. her and partner deny other ?s or concerns at this time. Admission and Anticipated Discharge Date Admission Date: December 18, 2020 Subjective Patient feels well overall. Having some incisional pain and asking about restarting guide alpine. PRBCs done infusing. Had one dose of iv morphine that helped while guide alpine was held due to blood infusing. no cp/sob, no willis or visual change. no ruq pain. no n/v. Physical Exam Constitutional: WD/WN, vitals as above urine output >500cc last 4hr. Respiratory: normal respiratory effort, lungs clear to auscultation Musculoskeletal: nt calves Neurologic: dtrs +2 patellar, no clonus Psychiatric: A+Ox3, euthymic affect Results & Data ([facility]) Vital Signs (Past 12 Hours) Vital Signs Temp Pulse Resp BP Pulse Ox 12/19/20 12:43 72 98 12/19/20 12:38 74 99 12/19/20 12:33 69 98 12/19/20 12:30 97.9 F 68 16 111/67 98 12/19/20 12:28 75 98 12/19/20 12:23 70 98 12/19/20 12:18 78 96 12/19/20 12:13 73 97 12/19/20 12:08 67 97 12/19/20 12:04 65 117/60 12/19/20 12:03 63 96 12/19/20 11:58 66 93 12/19/20 11:53 66 94 12/19/20 11:48 68 96 12/19/20 11:43 72 96 12/19/20 11:38 73 96 12/19/20 11:34 65 112/58 L 12/19/20 11:33 97.9 F 78 16 112/58 L 97 12/19/20 11:28 66 92 12/19/20 11:23 66 92 12/19/20 11:18 66 92 12/19/20 11:13 67 94 12/19/20 11:08 71 93 12/19/20 11:03 98.1 F 70 16 116/74 94 12/19/20 10:58 74 96 12/19/20 10:53 71 95 12/19/20 10:48 73 95 12/19/20 10:46 77 118/61 12/19/20 10:45 98.1 F 75 16 118/61 12/19/20 10:43 69 95 12/19/20 10:38 73 95 12/19/20 10:37 16 12/19/20 10:34 72 107/58 L 12/19/20 10:33 72 94 12/19/20 10:29 81 118/56 L 12/19/20 10:28 80 95 12/19/20 10:23 98.1 F 73 16 108/57 L 95 12/19/20 10:19 70 103/57 L 12/19/20 10:18 74 92 12/19/20 10:13 73 93 12/19/20 10:08 78 93 12/19/20 10:04 98.1 F 78 18 103/64 12/19/20 10:03 75 93 12/19/20 09:58 77 93 12/19/20 09:53 73 94 12/19/20 09:49 80 112/60 12/19/20 09:48 76 94 12/19/20 09:43 79 93 12/19/20 09:38 76 92 12/19/20 09:34 73 113/58 L 12/19/20 09:33 77 93 12/19/20 09:28 78 94 12/19/20 09:23 77 95 12/19/20 09:19 73 110/59 L 12/19/20 09:18 73 95 12/19/20 09:13 76 95 12/19/20 09:08 74 95 12/19/20 09:04 98.1 F 77 16 107/54 L 95 12/19/20 09:03 76 94 12/19/20 08:58 79 94 12/19/20 08:53 75 95 12/19/20 08:49 70 113/58 L 12/19/20 08:48 71 93 12/19/20 08:43 76 95 12/19/20 08:38 70 94 12/19/20 08:33 74 114/55 L 95 12/19/20 08:32 97.9 F 73 14 114/55 L 95 12/19/20 08:28 70 95 12/19/20 08:23 77 94 12/19/20 08:18 97.9 F 72 14 115/54 L 93 12/19/20 08:13 75 110/55 L 91 12/19/20 08:08 71 116/56 L 94 12/19/20 08:03 80 109/58 L 95 12/19/20 07:58 98.2 F 76 16 114/57 L 94 12/19/20 07:53 83 94 12/19/20 07:48 79 94 12/19/20 07:43 82 94 12/19/20 07:38 83 94 12/19/20 07:35 98.2 F 16 12/19/20 07:33 88 95 12/19/20 07:28 87 94 12/19/20 07:23 79 94 12/19/20 07:18 82 95 12/19/20 07:13 79 95 12/19/20 07:08 88 94 12/19/20 07:03 87 94 12/19/20 07:00 88 111/64 12/19/20 06:58 90 95 12/19/20 06:53 87 95 12/19/20 06:48 91 H 94 12/19/20 06:43 90 93 12/19/20 06:38 96 H 94 12/19/20 06:33 87 94 12/19/20 06:28 89 93 12/19/20 06:23 91 H 94 12/19/20 06:18 93 H 94 12/19/20 06:13 96 H 94 12/19/20 06:08 99 H 92 12/19/20 06:03 88 93 12/19/20 06:00 99 H 16 106/53 L 12/19/20 05:58 98 H 93 12/19/20 05:53 86 93 12/19/20 05:48 89 94 12/19/20 05:43 91 H 94 12/19/20 05:38 92 H 93 12/19/20 05:33 95 H 93 12/19/20 05:28 88 94 12/19/20 05:23 92 H 94 12/19/20 05:18 81 92 12/19/20 05:13 79 91 12/19/20 05:08 77 91 12/19/20 05:03 89 94 12/19/20 05:00 73 111/57 L 12/19/20 04:58 78 92 12/19/20 04:53 77 92 12/19/20 04:48 78 92 12/19/20 04:43 77 92 12/19/20 04:38 77 93 12/19/20 04:33 76 94 12/19/20 04:28 80 94 12/19/20 04:23 79 92 12/19/20 04:18 78 93 12/19/20 04:13 77 92 12/19/20 04:08 74 93 12/19/20 04:03 80 92 12/19/20 04:00 77 108/55 L 12/19/20 03:58 76 93 12/19/20 03:53 77 92 12/19/20 03:48 90 95 12/19/20 03:45 98.2 F 16 12/19/20 03:43 75 93 12/19/20 03:38 78 92 12/19/20 03:33 80 92 12/19/20 03:28 79 92 12/19/20 03:23 79 93 12/19/20 03:18 82 91 12/19/20 03:13 82 93 12/19/20 03:08 80 92 12/19/20 03:03 79 92 12/19/20 03:00 77 112/58 L 12/19/20 02:58 78 93 12/19/20 02:53 75 94 12/19/20 02:48 83 95 12/19/20 02:43 84 95 12/19/20 02:38 89 94 12/19/20 02:33 93 H 96 12/19/20 02:28 82 94 12/19/20 02:23 97 H 95 12/19/20 02:18 92 H 96 12/19/20 02:13 86 93 12/19/20 02:10 16 12/19/20 02:08 95 H 94 12/19/20 02:03 94 H 95 12/19/20 02:00 89 130/60 12/19/20 01:58 95 H 93 12/19/20 01:53 96 H 95 12/19/20 01:48 78 93 12/19/20 01:43 77 93 12/19/20 01:38 82 92 12/19/20 01:33 78 92 12/19/20 01:28 78 93 12/19/20 01:23 78 92 12/19/20 01:18 79 92 12/19/20 01:13 79 92 12/19/20 01:08 78 93 12/19/20 01:03 80 92 12/19/20 01:00 80 110/61 12/19/20 00:58 77 94 12/19/20 00:54 83 92 12/19/20 00:53 83 92 12/19/20 00:49 81 91 12/19/20 00:48 77 95 PG Care Time/CCT Total # of Minutes Spent Total Time Spent with Patient: Total time spent is greater than 50% in coordination of care (as documented) at patient's floor/unit and/or counseling p atient: Coding Level of Care Code None Diagnoses HELLP syndrome (HELLP), third trimester O14.23 Twin O30.009 care following delivery Z39.2
[2020-12-19] MEDS ORDERED: ACETAMINOPHEN 325 MG TAB PO PRN (12:53)
[2020-12-19 13:00] LABS: Hematocrit (blood only) 25.6 % (37-47); Mean Corpuscular Hemoglobin 30.9 pg (25-34); Mean Corpuscular Hgb Conc 35.2 g/dL (32-36); RDW Coefficient of Variation 14.4 % (11.5-14.5); RDW Standard Deviation 46.3 fL (36.4-46.3); Red Blood Count 2.91 M/uL (4.2-5.4); White Blood Count 12.76 K/uL (4.8-10.8)
[2020-12-19 13:22] LABS: Alanine Aminotransferase 88 U/L (12-78); Albumin Globulin Ratio 0.6 (0.9-2); Albumin Level 1.8 gm/dl (3.4-5.0); Alkaline Phosphatase 108 U/L (45-117); Aspartate Aminotransferase 51 U/L (15-37); BUN Creatinine Ratio 12.5 (10-20); Bilirubin,Total 0.9 mg/dl (0.2-1); Blood Urea Nitrogen 6 mg/dl (7-18); Calcium 6.1 mg/dl (8.5-10.1); Carbon Dioxide 26 mmol/L (21-32); Chloride 103 mmol/L (98-107); Creatinine Clr Calc Pharmacy 224.8 ml/min; Est GFR (African American) > 150.0; Est GFR (Non-African American) 138.3; Glucose 70 mg/dl (70-99); Magnesium 5.9 mg/dl (1.8-2.4); Potassium 4.2 mmol/L (3.5-5.1); Sodium 135 mmol/L (136-145); Total Protein 4.8 gm/dl (6.4-8.2)
[2020-12-19 13:38] LABS: Mean Platelet Volume 9.1 fL (7.4-10.4); Platelet Count 94 K/uL (130-400)
[2020-12-19 13:54] LABS: Basophils # (auto) 0.03 K/uL (0-0.2); Basophils % (auto) 0.2 %; Eosinophils # (auto) 0.09 K/uL (0-0.5); Eosinophils % (auto) 0.7 %; Immature Granulocytes # (auto) 0.13 K/uL (0.00-0.02); Lymphocytes # (auto) 2.21 K/uL (1.2-3.4); Lymphocytes % (auto) 17.3 %; Monocytes % (auto) 7.8 %
[2020-12-19] MEDS: IBUPROFEN 600 MG TAB PO PRN ×3 (14:05→22:51)
[2020-12-19] MEDS: oxyCODONE/ACETAMINOPHEN 5mg/325mg TAB PO PRN ×3 (14:06→22:51)
[2020-12-19] MEDS ORDERED: bisacodyL 5 MG TABEC PO SCH (20:00)
[2020-12-20] MEDS: IBUPROFEN 600 MG TAB PO PRN ×4 (04:36→17:19)
[2020-12-20] MEDS: oxyCODONE/ACETAMINOPHEN 5mg/325mg TAB PO PRN ×5 (04:37→21:38)
[2020-12-20 06:35] LABS: Basophils # (auto) 0.02 K/uL (0-0.2); Basophils % (auto) 0.2 %; Eosinophils # (auto) 0.12 K/uL (0-0.5); Eosinophils % (auto) 1.1 %; Hemoglobin 8.3 g/dL (12.0-16.0); Immature Granulocytes # (auto) 0.31 K/uL (0.00-0.02); Immature Granulocytes % (auto) 2.9 %; Lymphocytes # (auto) 1.72 K/uL (1.2-3.4); Mean Corpuscular Hemoglobin 30.9 pg (25-34); Mean Corpuscular Hgb Conc 34.6 g/dL (32-36); Mean Corpuscular Volume 89.2 fL (80-100); Mean Platelet Volume 9.1 fL (7.4-10.4); Monocytes # (auto) 0.81 K/uL (0.11-0.59); Monocytes % (auto) 7.5 %; Neutrophils # (auto) 7.75 K/uL (1.4-6.5); Neutrophils % (auto) 72.3 %; Nucleated RBC # (auto) 0.03 K/uL (0-0); Nucleated RBC % (auto) 0.3 %; Platelet Count 121 K/uL (130-400); RDW Coefficient of Variation 15.1 % (11.5-14.5); RDW Standard Deviation 48.6 fL (36.4-46.3); Red Blood Count 2.69 M/uL (4.2-5.4); White Blood Count 10.73 K/uL (4.8-10.8)
[2020-12-20 07:05] LABS: Alanine Aminotransferase 59 U/L (12-78); Albumin Globulin Ratio 0.7 (0.9-2); Albumin Level 1.9 gm/dl (3.4-5.0); Alkaline Phosphatase 100 U/L (45-117); Aspartate Aminotransferase 29 U/L (15-37); Bilirubin,Total 0.4 mg/dl (0.2-1); Blood Urea Nitrogen 7 mg/dl (7-18); Calcium 7.4 mg/dl (8.5-10.1); Carbon Dioxide 28 mmol/L (21-32); Chloride 109 mmol/L (98-107); Creatinine Clr Calc Pharmacy 247.3 ml/min; Est GFR (African American) > 150.0; Est GFR (Non-African American) 142.7; Globulin 2.7 gm/dl (2.5-4.0); Glucose 77 mg/dl (70-99); Potassium 4.1 mmol/L (3.5-5.1); Sodium 140 mmol/L (136-145); Total Protein 4.6 gm/dl (6.4-8.2)
[2020-12-20] MEDS: FERROUS SULFATE 325 MG TAB PO SCH (08:28)
[2020-12-20] MEDS: PRENATAL VITAMIN 1 TAB PO SCH (08:28)
[2020-12-20] MEDS: DOCUSATE SODIUM 100 MG CAP PO SCH ×2 (08:28→20:49)
[2020-12-20] MEDS: SIMETHICONE 80 MG CHEW PO SCH ×4 (08:28→20:49)
[2020-12-20] MEDS ORDERED: PSEUDOEPHEDRINE HCL 30 MG TAB PO PRN (10:24)
--- NOTE | 2020-12-20 10:24 | Obstetrical Progress Note ---
Date of Service December 20, 2020 Assessment & Plan (1) care following delivery: (2) HELLP syndrome (HELLP), third trimester: doing well stable. reviewed hgb and do not feel any concern for active bleeding. she will need to build back iron stores with supplement reviewed. not dizzy. not sure if congested and feeling that whooshing, definitely not due to elevated bp, can try decongestant since bps all normal. routine pp care. did get rhogam. Subjective Ambulation: ambulating normally Voiding: no voiding problems Passing Gas:: Yes Diet Tolerance:: regular diet Lochia:: Small Feeding Type:: breast feeding doing well, denies pain issues. breast feeding twins. voiding well. eating regular food. labs reviewed with patient. she notes whooshing feeling when she walks in her ears, with her steps. admits to some phlegm. no history of allergies. ? congestion. bps are normal. Physical Exam Constitutional WD/WN, vitals as above Respiratory normal respiratory effort, lungs clear to auscultation Cardiovascular Rate/Rhythm: regular rate and regular rhythm Gastrointestinal (Abdomen) Inspection/Auscultation: abdomen normal to inspection and + abdominal surgical incision (c/d/i with steris) Percussion/Palpation: abdomen soft; abdomen nontender fundus firm 2 cm below umbilicus Musculoskeletal nt calves no edema Neurologic grossly normal Psychiatric A+Ox3, euthymic affect Results & Data ([facility]) Vital Signs (Past 12 Hours) Vital Signs Temp Pulse Resp BP Pulse Ox 12/20/20 07:26 97.7 F 71 16 115/74 96 12/20/20 04:30 97.3 F L 78 18 118/68 97 12/19/20 23:10 98.1 F 80 16 122/76 97
[2020-12-20] MEDS ORDERED: bisacodyL 10 MG SUPP PR PRN (13:18)
[2020-12-21] MEDS: IBUPROFEN 600 MG TAB PO PRN ×5 (02:15→21:13)
[2020-12-21] MEDS: oxyCODONE/ACETAMINOPHEN 5mg/325mg TAB PO PRN ×5 (02:15→21:14)
--- NOTE | 2020-12-21 06:56 | Obstetrical Progress Note ---
Date of Service <Veronique Chopra DO - Last Filed: 12/21/20 07:09> December 21, 2020 Assessment & Plan <Veronique Chopra DO - Last Filed: 12/21/20 07:09> (1) care following delivery: Alma is a 25 y/o female who is POD #3 following PLTCS in setting of atypical HELLP syndrome at 38 WGA, with subsequent delivery of two healthy di/di twins. s/p PLTCS 12/18/2020 - Overall, doing well this AM -- vital signs stable - PNL: Rh negative (did get Rhogam), RI, GBS positive, COVID neg - Feels well today. Eating well, voiding well, ambulating fairly well. - Pain well controlled with ibuprofen 600mg Q4H PRN and Percocet 5-325mg Q4H prn - Routine PLTCS care including OOB and ambulation. Continue full diet as tolerated. - After discharge will have [address] Dick HELLP Syndrome, Atypical -- s/p 1U FFP pre-operatively - Appreciated on labs on admission, platelets to ~60s, mild transaminitis from 140-190s - Continued Mag throughout 12/19/20 - BPs have remained stable Acute Blood Loss Anemia -- currently asymptomatic - Hgb ~11 on arrival --> 7.1 on 12/19/20 - Patient received 2U PRBCs on 12/19/20 - Repeat H&H 12/20/20 was 8.3/24 - Continue ferrous sulfate daily (2) HELLP syndrome (HELLP), third trimester: Subjective <Veronique Chopra DO - Last Filed: 12/21/20 07:09> Alma Lew is a 25 y/o female who is POD #3 following delivery for di-di twins secondary to HELLP syndrome at 38 +1 weeks. She reports feeling well overall this morning and states that she "made a 180degree change management director the past 12-15 hours." Minimal abdominal pain/cramping, with a burning pain most prominently around the incision, that is well managed on analgesics. Voiding without difficulty or dysuria. Tolerating meals overnight without difficulty, nausea, or vomiting. Patient has been able to ambulate some; does report some "feeling off" with periods of longer ambulation. She is passing gas; has not yet had a bowel movement. Has persistent lochia with some improvement this morning. Currently , pumping, and supplementing with formula. Review of Systems Denies fever or chills. Denies shortness of breath or cough. Denies chest pain. Denies breast pain, nipple cracking, or nipple bleeding. Denies dysuria. Denies leg pain or leg swelling. Denies headache or changes in vision. Physical Exam <Veronique Chopra DO - Last Filed: 12/21/20 07:09> General: Alert, oriented. No acute distress. Cardiac: Regular rate and rhythm. No murmurs. Respiratory: Clear to auscultation bilaterally a/p, no wheezes/rales/rhonchi. No increased work of breathing. Symmetrical chest rise. No respiratory distress. Abdomen: Soft, nontender, nondistended. Bowel sounds present. Uterus: Uterine fundus firm, palpable 2 cm below umbilicus. Surgical scar clean and healing well. Steri strips in place. Lower Extremities: No lower extremity edema or swelling. No deep calf pain. Results & Data ([facility]) <Veronique Chopra DO - Last Filed: 12/21/20 07:09> Vital Signs (Past 12 Hours) Vital Signs Temp Pulse Resp BP Pulse Ox 12/21/20 00:15 36.9 C 63 18 146/84 H 97 <Dulce Ryan MD, FACOG - Last Filed: 12/21/20 07:41> Co-Signing Physician Notes Resident Physician Supervision Note: I was present with Dr. Chopra during the history and exam. I discussed the case with the resident and agree with the findings and plan as documented in the note. Any exceptions or clarifications are listed here: doing well, pain meds working well. burning on incision, will try heat. bp ok, except for this am. abd soft ff 1 above(needs to void) incision c/d/i, ext nt calves. tr edema. vern rrr, lungs ctab. she at first thought she was ready to go home, but now wants to stay another day. will monitor bps. Documented By: Dulce Ryan MD, FACOG Resident Activity Tracking <Veronique Chopra, DO - Last Filed: 12/21/20 07:09> Resident Involvement: Resident Care Provided Care Provided: OB Delivery
[2020-12-21] MEDS: DOCUSATE SODIUM 100 MG CAP PO SCH ×2 (08:25→21:14)
[2020-12-21] MEDS: FERROUS SULFATE 325 MG TAB PO SCH (08:26)
[2020-12-21] MEDS: SIMETHICONE 80 MG CHEW PO SCH ×4 (08:26→21:14)
[2020-12-21] MEDS: PRENATAL VITAMIN 1 TAB PO SCH (08:26)
[2020-12-22] MEDS: oxyCODONE/ACETAMINOPHEN 5mg/325mg TAB PO PRN ×3 (02:04→12:36)
[2020-12-22] MEDS: IBUPROFEN 600 MG TAB PO PRN ×3 (02:04→12:36)
--- NOTE | 2020-12-22 05:54 | Obstetrical Progress Note ---
Date of Service December 22, 2020 Assessment & Plan (1) care following delivery: (2) HELLP syndrome (HELLP), third trimester: Patient doing well this am. Her blood pressure have been good. no s/s pet. Patient feels much more comfortable with d/c today. Plan d/c. Instruc tions given. f/u in the office in about a week for bp check and monitoring for how she is doing emotionally with these two babies. She is agreeable to that. Got rhogam. Day #:: 4 Subjective Ambulation: ambulating normally (moving much better.) Voiding: no voiding problems Passing Gas:: Yes Diet Tolerance:: regular diet Lochia:: Small Feeding Type:: breast feeding (going much better.) Pain well controlled. Physical Exam Constitutional WD/WN, vitals as above Neck trachea midline, no thyromegaly Respiratory normal respiratory effort, lungs clear to auscultation Cardiovascular RRR, no murmur, no edema Extremities: no edema Gastrointestinal (Abdomen) soft, nd, nd ff/nt at 1 above u incision c/d/i Psychiatric A+Ox3, euthymic affect Results & Data ([facility]) Vital Signs (Past 12 Hours) Vital Signs Temp Pulse Resp BP Pulse Ox 12/21/20 23:50 36.8 C 62 18 123/79 97 12/21/20 19:15 36.6 C 74 20 125/78 98
[2020-12-22] MEDS: PRENATAL VITAMIN 1 TAB PO SCH (08:58)
[2020-12-22] MEDS: SIMETHICONE 80 MG CHEW PO SCH ×2 (08:59→12:36)
[2020-12-22] MEDS: DOCUSATE SODIUM 100 MG CAP PO SCH (08:59)
[2020-12-22] MEDS: FERROUS SULFATE 325 MG TAB PO SCH (08:59)
--- NOTE | 2020-12-23 07:57 | Discharge Summary ---
Date of Service December 23, 2020 Admission HPI Per Admitting Provider Admitted to be induced for twins but presented with HELLP syndrome and had C/S as was not ok for regional anesthetic. Received MgSO4, plat transfusion and 2u PRBC Discharge Data Consultations 12/18/20 08:45 Consult Anesthesiology Stat Procedures Performed Operation Date: 12/18/20 08:50 <No data on this case meets the specified criteria> Operation Date: 12/18/20 12:15 Actual Procedures p Section in LD(Bilateral) - Kaye Dick MD, [facility] Course (1) HELLP syndrome (HELLP), third trimester: Patient doing well this am. Her blood pressure have been good. no s/s pet. Patient feels much more comfortable with d/c today. Plan d/c. Instructions given. f/u in the office in about a week for bp check and m onitoring for how she is doing emotionally with these two babies. She is agreeable to that. Got rhogam. assessed by tongue and groove machine feeder team and met criteria. hb 8.3 Coding Level of Care Code None Diagnoses HELLP syndrome (HELLP), third trimester O14.23
== END 2020-12-22 13:20 | disposition home or self-care (01) | DRG 787 ==
LOC: 4S1 07:41 → EDSTATUS 08:50 → 4S2 12-19 16:47